=== PATIENT | male | born 1995 | race Hispanic/Latino ===

== ENCOUNTER 2024-04-23 17:45 | Inpatient (IN) | payer SELFPAY ==
[~2024-04-23] VITALS: Ht 172.7 cm; Wt 90.7 kg
[2024-04-23] MEDS: ACETAMINOPHEN 325 MG TAB PO ONE (18:39)
[2024-04-23 18:59] LABS: CORONAVIRUS COVID-19 AG NEGATIVE (NEGATIVE); INFLUENZA A AG NEGATIVE (NEGATIVE); INFLUENZA B AG NEGATIVE (NEGATIVE)
[2024-04-23 20:20] VITALS: PULSE 92; RESP 18; TEMP 99.4
[2024-04-23] MEDS ORDERED: SODIUM CHLORIDE FLUSH 10 ML SYR INJ PRN (22:30)
[2024-04-23 23:00] VITALS: BP 126/79; PULSE 72; RESP 18; TEMP 98.1; O2SAT 98
[2024-04-23 23:05] LABS: BASOPHILS % 0.2 % (0.0-1.0); EOSINOPHILS # (AUTO) 0.1 (0.0-0.4); EOSINOPHILS % 0.6 % (0.0-6.0); HEMATOCRIT 41.2 % (38.2-49.6); HEMOGLOBIN 13.8 g/dL (14.0-18.0); LYMPHOCYTES # (AUTO) 3.7 (1.0-3.2); LYMPHOCYTES % 21.2 % (18.0-39.1); MEAN CORPUSCULAR HEMOGLOBIN 26.3 pg (28-32); MEAN CORPUSCULAR HGB CONC 33.5 g/dL (31-35); MEAN CORPUSCULAR VOLUME 78.6 fL (81-99); MONOCYTES # (AUTO) 1.8 (0.2-0.8); MONOCYTES % 10.1 % (4.4-11.3); NEUTROPHILS # (AUTO) 11.8 (2.1-6.9); NEUTROPHILS % 67.3 % (38.7-80.0); PLATELET COUNT 273 x10e3/uL (140-360); RED BLOOD COUNT 5.24 x10e6/uL (4.3-5.7); RED CELL DISTRIBUTION WIDTH 12.6 % (11.7-14.4); WHITE BLOOD COUNT 17.57 x10e3/uL (4.8-10.8)
[2024-04-23 23:21] LABS: ALBUMIN 3.2 g/dL (3.5-5.0); ALBUMIN/GLOBULIN RATIO 0.7 (0.8-2.0); ANION GAP 14.6 mmol/L (8-16); BILIRUBIN,TOTAL 0.6 mg/dL (0.2-1.2); CALCIUM 9.2 mg/dL (8.4-10.2); CREATININE, SERUM 0.8 mg/dL (0.72-1.25); POTASSIUM 3.6 mmol/L (3.5-5.1); TOTAL PROTEIN 7.5 g/dL (6.5-8.1)
[2024-04-23 23:23] VITALS: PULSE 100; RESP 20; O2SAT 98
[2024-04-23 23:55] LABS: HIV 1&2 AB SCREEN NON-REACTIVE (NONREACTIVE); HIV- 1 P24 AG SCREEN NON-REACTIVE (NONREACTIVE)
[2024-04-24] VITALS: BP 118/71; PULSE 88; RESP 17; TEMP 99.5; O2SAT 100
[2024-04-24] MEDS ORDERED: TAMIFLU75 MG PO (00:29)
[2024-04-24] MEDS ORDERED: PREDNISONE20 MG PO (00:31)
[2024-04-24 04:00] VITALS: BP 120/75; PULSE 86; RESP 17; TEMP 99.6; O2SAT 100
[2024-04-24 06:16] LABS: BASOPHILS % 0.3 % (0.0-1.0); EOSINOPHILS # (AUTO) 0.1 (0.0-0.4); EOSINOPHILS % 0.4 % (0.0-6.0); HEMATOCRIT 38.6 % (38.2-49.6); HEMOGLOBIN 13.2 g/dL (14.0-18.0); LYMPHOCYTES # (AUTO) 2.1 (1.0-3.2); LYMPHOCYTES % 13.5 % (18.0-39.1); MEAN CORPUSCULAR HEMOGLOBIN 25.8 pg (28-32); MEAN CORPUSCULAR HGB CONC 34.2 g/dL (31-35); MEAN CORPUSCULAR VOLUME 75.5 fL (81-99); MONOCYTES # (AUTO) 1.3 (0.2-0.8); MONOCYTES % 8.5 % (4.4-11.3); NEUTROPHILS # (AUTO) 11.9 (2.1-6.9); NEUTROPHILS % 76.7 % (38.7-80.0); PLATELET COUNT 261 x10e3/uL (140-360); RED BLOOD COUNT 5.11 x10e6/uL (4.3-5.7); RED CELL DISTRIBUTION WIDTH 12.7 % (11.7-14.4); WHITE BLOOD COUNT 15.51 x10e3/uL (4.8-10.8)
[2024-04-24 06:45] LABS: ALBUMIN/GLOBULIN RATIO 0.7 (0.8-2.0); ANION GAP 12.6 mmol/L (8-16); BILIRUBIN,TOTAL 1.2 mg/dL (0.2-1.2); CALCIUM 9.3 mg/dL (8.4-10.2); CREATININE, SERUM 0.84 mg/dL (0.72-1.25); POTASSIUM 4.6 mmol/L (3.5-5.1); TOTAL PROTEIN 7.2 g/dL (6.5-8.1)
[2024-04-24 08:31] VITALS: BP 120/67; PULSE 70; RESP 20; TEMP 99.4; O2SAT 100
[2024-04-24 12:00] VITALS: BP 122/70; PULSE 83; RESP 20; TEMP 98.7; O2SAT 100
[2024-04-24 15:51] VITALS: BP 110/78; PULSE 95; RESP 20; TEMP 98.6; O2SAT 100
[2024-04-24] MEDS: ACETAMINOPHEN 325 MG TAB PO PRN (17:20)
[2024-04-25] VITALS (10 sets, daily range): BP systolic 117–131; BP diastolic 66–82; PULSE 79–92; RESP 17–20; TEMP 98.2–99; O2SAT 98–100
[2024-04-25] MEDS: ALBUTEROL/IPRATROPIUM 3 ML NEB NEB PRN (14:02)
[2024-04-25] MEDS: BENZONATATE 100 MG CAP PO SCH (14:30)
[2024-04-25] MEDS: ENOXAPARIN SOD INJ 40 MG/0.4 ML SYR SC ONE (16:12)
[2024-04-26] VITALS (10 sets, daily range): BP systolic 115–134; BP diastolic 70–84; PULSE 66–87; RESP 18–20; TEMP 97.5–98.5; O2SAT 95–100
[2024-04-27] VITALS (7 sets, daily range): BP systolic 121–140; BP diastolic 69–86; PULSE 77–86; RESP 18–21; TEMP 97.9–98.6; O2SAT 99–100
[2024-04-27] MEDS ORDERED: AUGMENTIN 500-1 EACH PO (19:40)
[2024-04-28 12:09] LABS: HIV-1 RNA,QUANT. PCR C/ML <20 copies/mL (.)
== END 2024-04-27 20:40 | disposition home or self-care (01) | DRG 195 ==
LOC: ER 18:03 → ERHOLD 22:31 → MED/SURG3 04-24 00:21
PROVIDERS: ADMIT Internal Medicine; ATTEND Internal Medicine
DX: J18.9 Pneumonia, unspecified organism (principal); J98.4 Other disorders of lung; R53.81 Other malaise; R91.8 Other nonspecific abnormal finding of lung field; Z11.52 Encounter for screening for COVID-19
CPT/HCPCS: 36415; 71046; 71250; 80053; 85025; 86635; 87040; 87102; 87116; 87206; 87390; 87536; 94640; 94799; 99284; G0433; G0435; J1650; J2543